=== PATIENT | female | born 1990 | race Caucasian/White ===

== ENCOUNTER 2022-03-18 10:30 | Emergency (ER) | payer OTHER | END 2022-03-18 13:15 | disposition home or self-care (01) | LOC: JD.ED 10:30 | DX: O20.9 Hemorrhage in early pregnancy, unspecified (principal); O23.41 Unspecified infection of urinary tract in pregnancy, first trimester; Z3A.12 12 weeks gestation of pregnancy | CPT/HCPCS: 36415; 76801; 76801-26; 80053; 81001; 85025; 86900; 86901; 87086; 99284-25 ==

== ENCOUNTER 2022-09-13 04:40 | Inpatient (IN) | payer BC, OTHER ==
[~2022-09-13 04:40] MED LIST: Citric Acid/Sodium Citrate Solution 30 ML Cup PO ONE; Metoclopramide 10 MG/2 ML SDV IVPUSH ONE; Oxytocin/Lactated Ringers 10 UNIT/1,000 ML BAG IV SCH; Sodium Chloride 0.9% 10 ML Syringe FLUSH PRN
[2022-09-13] MEDS ORDERED: ceFAZolin 2 GM in Sodium Chloride 0.9% 50 ML IV ONE (05:00)
[2022-09-13] MEDS: Lactated Ringers 1,000 ML IV SCH ×2 (05:34→07:25)
[2022-09-13] MEDS ORDERED: fentaNYL 100 MCG/2 ML SDV ONE (06:36)
[2022-09-13] MEDS ORDERED: Morphine PF 10 MG/10 ML SDV ONE (06:37)
[2022-09-13] MEDS ORDERED: ceFAZolin 2 GM Vial ONE (06:39)
[2022-09-13] MEDS ORDERED: Metoclopramide 10 MG/2 ML SDV IVPUSH ONE (07:15)
[2022-09-13] MEDS ORDERED: Citric Acid/Sodium Citrate Solution 30 ML Cup PO ONE (07:15)
[2022-09-13] MEDS ORDERED: Bupivacaine 0.5% 30 ML SDV ONE (07:17)
[2022-09-13] MEDS ORDERED: Bupivacaine 0.5%/EPINEPHrine 1:200,000 50 ML MDV ONE (07:17)
[2022-09-13] MEDS ORDERED: Lactated Ringers 1,000 ML ONE ×2 (08:06→08:43)
[2022-09-13] MEDS ORDERED: Oxytocin 10 Units/1 ML SDV ONE (08:17)
[2022-09-13] MEDS ORDERED: Dexmedetomidine 200 MCG/2 ML SDV ONE (08:23)
[2022-09-13] MEDS ORDERED: diphenhydrAMINE 50 MG/ML SDV IVPUSH PRN ×2 (08:32→11:30)
[2022-09-13] MEDS ORDERED: Ondansetron 4 MG/2 ML SDV IVPUSH PRN (08:32)
[2022-09-13] MEDS ORDERED: fentaNYL 100 MCG/2 ML SDV IVPUSH PRN (08:32)
[2022-09-13] MEDS ORDERED: Ondansetron 4 MG/2 ML SDV ONE (08:47)
[2022-09-13] MEDS ORDERED: Ketorolac 30 MG/ML SDV ONE (08:47)
[2022-09-13] MEDS ORDERED: Sodium Chloride 0.9% 10 ML Syringe FLUSH SCH (09:00)
[2022-09-13] MEDS ORDERED: Dextrose 5%-Lactated Ringers 1,000 ML IV SCH (11:30)
[2022-09-13] MEDS ORDERED: Magnesium Hydroxide 400 MG/5 ML Susp 30 ML Cup PO PRN (11:30)
[2022-09-13] MEDS ORDERED: Naloxone 0.4 MG/ML SDV IVPUSH PRN (11:30)
[2022-09-13] MEDS ORDERED: Oxytocin/Lactated Ringers 10 UNIT/1,000 ML BAG IV SCH (11:30)
[2022-09-13] MEDS ORDERED: ePHEDrine 50 MG/ML SDV IVPUSH PRN (11:30)
[2022-09-13] MEDS ORDERED: Acetaminophen/oxyCODONE 325-5 MG Tab PO PRN (11:30)
[2022-09-13] MEDS: Acetaminophen/oxyCODONE 325-5 MG Tab PO PRN (15:15)
[2022-09-13] MEDS: Ketorolac 30 MG/ML SDV IVPUSH SCH ×2 (15:15→20:58)
[2022-09-13] MEDS: Docusate Sodium 100 MG Cap PO SCH (20:58)
[2022-09-14] MEDS: Ketorolac 30 MG/ML SDV IVPUSH SCH (03:56)
[2022-09-14] MEDS: Acetaminophen/oxyCODONE 325-5 MG Tab PO PRN ×2 (04:01→21:04)
[2022-09-14] MEDS: Prenatal Multivitamin with Calcium/Folic Acid/Iron Tab PO SCH (08:03)
[2022-09-14] MEDS: Docusate Sodium 100 MG Cap PO SCH ×2 (08:03→21:04)
[2022-09-14] MEDS: Ibuprofen 600 MG Tab PO PRN (15:46)
[2022-09-15] MEDS: Ibuprofen 600 MG Tab PO PRN ×2 (03:33→09:05)
[2022-09-15] MEDS: Docusate Sodium 100 MG Cap PO SCH (09:05)
[2022-09-15] MEDS: Prenatal Multivitamin with Calcium/Folic Acid/Iron Tab PO SCH (09:05)
== END 2022-09-15 11:06 | disposition home or self-care (01) | DRG 540 ==
LOC: JD.OB 04:43
PROVIDERS: ADMIT Obstetrics & Gynecology; ATTEND Obstetrics & Gynecology
PROC: 10D00Z1 Extraction of Products of Conception, Low, Open Approach (ICD-10-PCS; principal; 2022-09-13)
DX: O34.211 Maternal care for low transverse scar from previous cesarean delivery (principal); Z3A.39 39 weeks gestation of pregnancy; Z37.0 Single live birth; N83.8 Other noninflammatory disorders of ovary, fallopian tube and broad ligament; O99.892 Other specified diseases and conditions complicating childbirth; Z87.891 Personal history of nicotine dependence; Z87.440 Personal history of urinary (tract) infections
CPT/HCPCS: 01961; 36415; 59020; 85025; 86592; 86850; 86900; 86901; 94762; A9270-GY; J0690; J1885; J2274; J2405; J2590; J2765; J3010; J3490; J7120